=== PATIENT | female | born 1955 | race Caucasian/White ===

== ENCOUNTER → 2016-09-15 | Outpatient (CLI) | payer MEDICAID ==
--- NOTE | 2016-09-15 11:28 | CT ---
CT Right Hip Indication: Fall one week ago. Pain. Popping. Evaluate right hip prosthesis. Technique: 0.625 mm thick helically acquired slices were obtained through the entire pelvis. The data was reconstructed in the sagittal and coronal planes in bone algorithm. Dose reduction techniques we re utilized. Comparison: Right hip series, May 28, 2016 and November 13, 2014. Findings: No acute fracture. Bilateral total hip arthroplasties are well seated and anatomically ali gned. Specifically, no evidence of loosening or fracture of the right total hip arthroplasty. The mary tabular component and screw securing the right acetabular component are both well seated. Minimal jayashree ency surrounding the apex of the left acetabular screw is unchanged since May 2016 and [facility] e November 2014. The left femoral component is well seated with minimal adjacent heterotopic calcificati on. No free fluid or hematoma. The imaged portion of the urinary bladder, uterus and adnexa are within no rmal limits. Moderate to severe degenerative disk disease is present at L4-L5 and L5-S1 contributing to at least moderate bilateral neural foraminal stenosis at L5-S1. No acute sacral fracture. Impression: 1. No acute pelvic fracture. 2. Well-seated right total hip arthroplasty. 3. Subtle early loosening of the screw securing the left acetabular component. Comment: The case was reviewed with Dr. Nando Watkins. A message was left at Dr. Fuentes' office at 11:10 a.m. on September 15, 2016.
== END ==
LOC: FIMAGING 09:53
PROVIDERS: ATTEND Family Medicine
DX: M25.551 Pain in right hip (principal); R29.4 Clicking hip; Z96.641 Presence of right artificial hip joint

== ENCOUNTER 2016-09-25 20:05 | Emergency (ER) | payer MEDICAID ==
[2016-09-25] MEDS ORDERED: NS 1,000 ML IV ONE (20:19)
--- NOTE | 2016-09-25 20:19 | EDPHY ---
H & P Time Seen by Provider: 09/25/16 20:09 HPI/ROS: Chief complaint. Hip pain HPI. 61-year-old female here by EMS from [facility] with right hip pain. She says she was standing and had sudden pain in her right hip that caused her to fall. She has bilateral hip arthroplasty. She tells me that it has previously been dislocated and has had multiple revisions and she is anticipating another revision. She has chronic pain takes morphine for this. This morning she says she threw up her morning dose of morphine. No other injuries. ROS Constitutional. no fever/chills, no weakness Eyes. no problems with vision ENT. no sore throat, no nasal drainage Cardiovascular. no chest pain Respiratory. no shortness of breath, no cough Abdominal. no abdominal pain, no nausea/vomiting, no diarrhea . no problems urinating MS. Right hip pain Skin. no rash Lymph. no swollen glands Neuro. no headache, no dizziness, no difficulty walking or with speech Past Medical/Surgical History: Chronic pain, hypothyroid, UT, hip arthroplasty Social History: , smoker no alcohol Smoking Status: Current every day smoker Physical Exam: General Appearance: Alert well-developed female mild distress vital signs stable Eyes: Pupils equal and round no pallor or injection. ENT, Mouth: Mucous membranes are moist. Respiratory: There are no retractions, lungs are clear to auscultation. Cardiovascular: Regular rate and rhythm. Gastrointestinal: Abdomen is soft and nontender, no masses, bowel sounds normal. Neurological: Awake and alert, sensory and motor exams grossly normal. Skin: Warm and dry, no rashes. Musculoskeletal: Neck is supple nontender. Extremities tender in the right hip to palpation however the patient has spontaneous good range of motion crosses her legs spontaneously Psychiatric: Patient is oriented X 3, there is no agitation. Constitutional: Initial Vital Signs Temperature (C) 36.7 C 09/25/16 20:05 Heart Rate 73 09/25/16 20:05 Respiratory Rate 18 09/25/16 20:05 Blood Pressure 185/95 H 09/25/16 20:05 O2 Sat (%) 98 09/25/16 20:05 O2 Delivery Mode Room Air Allergies/Adverse Reactions: ibuprofen [Ibuprofen] Allergy (Severe, Verified 09/12/14 19:04) Hives lamotrigine [From Lamictal] Allergy (Severe, Verified 09/12/14 19:04) HALLUCINATIONS methadone [Methadone] Allergy (Severe, Verified 09/12/14 19:04) Anaphylaxis ketorolac tromethamine [From Toradol] Allergy (Verified 09/12/14 19:04) naproxen sodium [From Aleve] Allergy (Verified 09/12/14 19:04) ANTIDEPRESSANTS Allergy (Severe, Uncoded 09/12/14 19:04) MENTAL CHANGES, LOSS MOTOR SKILLS antipsychotics Allergy (Uncoded 09/12/14 19:04) Home Medications: Medication Instructions Recorded Fluticasone/Salmeter 250/50Mcg 2 puffs IH BID 04/15/14 [Advair 250/50 (*)] Levothyroxine [Synthroid 50 mcg 50 mcg PO DAILY06 04/15/14 (*)] Mesalamine [Asacol 400 mg] 1,200 mg PO DAILY 04/15/14 Ondansetron Odt [Zofran Odt 4 mg 8 mg PO BID PRN 04/15/14 (*)] clonAZEPAM [Klonopin] 2 mg PO TID 04/15/14 morphINE SR [MS Contin/Oramorph 60 60 mg PO Q8 04/15/14 mg (*)] Atorvastatin Calcium [Lipitor 10 10 mg PO DAILY #0 tab 04/18/14 mg (*)] Albuterol Sulfate [Albuterol 2 puffs IH BID PRN 04/29/14 Inhaler Hfa] Lisinopril [Zestril 20 mg (*)] 20 mg PO DAILY 04/29/14 Medical Decision Making - Diagnostics Imaging: X-ray right hip and pelvis show no evidence for fracture or dislocation. Her prostheses appear to be in good anatomic position Procedures: IV normal saline. Morphine for pain ED Course/Re-evaluation: Re-evaluation at 8:30 p.m. patient is stable. She and I discussed treatment plan including criteria for return importance of follow-up and further evaluation. She expresses understanding and agreement Differential Diagnosis: I considered fracture, dislocation, sprain Departure - Departure Disposition: Home, Routine, Self-Care Clinical Impression: Pain of right hip Condition: Good Instructions: Hip Pain (ED) Additional Instructions: Ice to sore area of hip next 24 hours. Continue regular medications. Zofran if needed for nausea signal throw up your morphine. Call your orthopedist on Tuesday to arrange follow-up evaluation
[2016-09-25] MEDS ORDERED: ONDANSETRON 4MG PREPACK#2 BTL TAKEHOME ONE (20:49)
[2016-09-25 20:55] VITALS: RESP 16; O2SAT 96
--- NOTE | 2016-09-25 21:06 | DX ---
AP Supine Pelvis and Frog Lateral View of the Right Hip, Three Views Total September 25, 2016 at 8:32 p.m. Clinical History: 61-year-old female who fell and complains of right hip pain. Comparison Studies: CT scan of the right hip dated September 15, 2016, and a pelvic radiograph dated May. Findings: The patient has undergone prior bilateral total hip arthroplasties, which are anatomically aligned and stable in position. There is no new periprosthetic lucency. The appearance of each cortic al retention screw in the respective iliac bones is unchanged from May. There is some osseous h ypertrophy and well-corticated bone along the greater trochanteric on each side. There is also some o sseous hypertrophy just above the left lateral acetabulum. The femoral intramedullary components are well-positioned. The ischiopubic rami are intact. There is no symphysis pubis or SI joint diastasis. There are some degenerative features of the lower lumbar spine. Impression: Status post bilateral hip arthroplasties, with no acute osseous abnormality identified.
[2016-09-25 21:27] VITALS: BP 168/79; PULSE 78; TEMP 97.2
== END 2016-09-25 22:00 | disposition home or self-care (01) ==
LOC: EDUNIT#
DX: S79.911A Unspecified injury of right hip, initial encounter (principal); I25.2 Old myocardial infarction; F17.200 Nicotine dependence, unspecified, uncomplicated; W19.XXXA Unspecified fall, initial encounter
CPT/HCPCS: 96374

== ENCOUNTER 2016-11-19 15:21 | Emergency (ER) | payer MEDICAID ==
[2016-11-19] MEDS ORDERED: ONDANSETRON 4 MG/2 ML VIAL IVP ONE (15:31)
[2016-11-19] MEDS ORDERED: NS 1,000 ML IV ONE (15:31)
[2016-11-19 15:32] VITALS: RESP 18; TEMP 97.7
--- NOTE | 2016-11-19 15:32 | EDPHY ---
General Narrative: CHIEF COMPLAINT: Nausea, vomiting, cough, shortness of breath, diarrhea HISTORY OF PRESENT ILLNESS: patient says she has had nausea, vomiting and diarrhea for the past few days. Due to this, she has increased her intake of her prescribed morphine for chronic pain and she reports being able to keep them down. She says that the nausea vomiting is mild to moderate and persistent. Keeping liquids down. Difficulty with fluids. No bloody stools or emesis. No chest pain but she does have some cough and shortness of breath. No abdominal pain or urinary complaints. She took 1 of her 's 1 mg clonidine earlier today due to the anxiety she felt or running out of her pain medication. This caused her to be dizzy and this resolved within an hour. She had no syncope. She has no neck pain. No other associated complaints or modifying factors. REVIEW OF SYSTEMS: Ten systems reviewed and are negative unless otherwise noted in the HPI PERTINENT MEDICAL HISTORY: Chronic back pain, chronic hip pain EXAMINATION General Appearance: Alert, no distress Head: normocephalic, atraumatic Eyes: Pupils equal and round, no conjunctival pallor or injection. EOMs intact. ENT, Mouth: Mucous membranes moist. Uvula midline. No erythema or edema. Neck: Normal inspection, supple, non-tender Respiratory: Mild rhonchi. No wheezing. No consolidation. No crackles. No diminishment. Cardiovascular: Regular rate and rhythm . No murmur. Pulses intact distally. Gastrointestinal: Abdomen is soft and nontender . No CVA tenderness. No tympany. No rigidity. Neurological: A&O, nonfocal, normal gait Skin: Warm and dry . Multiple areas of excoriation. There also discolorations about the arm consistent with previous infection per patient. No acute lesions. Extremities: Nontender, no pedal edema Psychiatric: Mood and affect normal DIFFERENTIAL DIAGNOSES: Including but not limited to Narcotic dependency, opiate dependency, nausea vomiting, viral illness, influenza, dehydration, COPD, hypertension MDM: 3:25 p.m. nausea, vomiting, diarrhea, body aches, chills. These preceded her running out of her pain medications. She was vomiting to the point she kept retaking her medication because she could not keep down. She has chronic pain of the low back and right hip. Vital signs are stable with mild hypertension. She has missed some of her lisinopril. Dizziness was reviewed later that the clonidine that she took her 's that has resolved. 3:38 p.m. upon review of the patient's prescription monitoring program, there is discrepancy and what she tells me about her dosing prescriptions and was actually prescribed. Patient had 56 sustained release morphine 60 mg dispersed on the , and 42 immediate release 30 mg. I am not comfortable with providing any more narcotics to her today given this discrepancy. Will obtain laboratory studies to verify her hydration status, and we will provide IV fluid resuscitation. 4:15 p.m. notified by the patient's PCP office that she will not be able to obtain any prescriptions until Tuesday for her pain medication 4:30 p.m. laboratory studies are within acceptable limits. No pneumonia. Vital signs stable. She does have hypertension but she has not been taking medication for this. She is instructed to resume it. She will be discharged home with instructions to resume that, take her Zofran and follow up with her primary care physician on Tuesday for further pain medication SUPERVISION: This patient was independently evaluated without the aide of supervising physician. Case discussed with Dr. Joy - History Smoking Status: Current every day smoker - Objective Allergies/Adverse Reactions: ibuprofen [Ibuprofen] Allergy (Severe, Verified 09/12/14 19:04) Hives lamotrigine [From Lamictal] Allergy (Severe, Verified 09/12/14 19:04) HALLUCINATIONS methadone [Methadone] Allergy (Severe, Verified 09/12/14 19:04) Anaphylaxis ketorolac tromethamine [From Toradol] Allergy (Verified 09/12/14 19:04) naproxen sodium [From Aleve] Allergy (Verified 09/12/14 19:04) ANTIDEPRESSANTS Allergy (Severe, Uncoded 09/12/14 19:04) MENTAL CHANGES, LOSS MOTOR SKILLS antipsychotics Allergy (Uncoded 09/12/14 19:04) Home Medications: Medication Instructions Recorded Fluticasone/Salmeter 250/50Mcg 2 puffs IH BID 04/15/14 [Advair 250/50 (*)] Levothyroxine [Synthroid 50 mcg 50 mcg PO DAILY06 04/15/14 (*)] Mesalamine [Asacol 400 mg] 1,200 mg PO DAILY 04/15/14 Ondansetron Odt [Zofran Odt 4 mg 8 mg PO BID PRN 04/15/14 (*)] clonAZEPAM [Klonopin] 2 mg PO TID 04/15/14 morphINE SR [MS Contin/Oramorph 60 60 mg PO Q8 04/15/14 mg (*)] Atorvastatin Calcium [Lipitor 10 10 mg PO DAILY #0 tab 04/18/14 mg (*)] Albuterol Sulfate [Albuterol 2 puffs IH BID PRN 04/29/14 Inhaler Hfa] Lisinopril [Zestril 20 mg (*)] 20 mg PO DAILY 04/29/14 Ondansetron Odt [Zofran Odt 4 mg 4 mg PO Q6 PRN #12 tab 11/19/16 (*)] Departure - Departure Disposition: Home, Routine, Self-Care Clinical Impression: Nausea & vomiting Qualifiers: Vomiting type: unspecified Vomiting Intractability: non-intractable Qualified Code(s): R11.2 - Nausea with vomiting, unspecified Opioid dependence Qualifiers: Substance use status: uncomplicated Qualified Code(s): F11.20 - Opioid dependence, uncomplicated Condition: Good Instructions: Acute Nausea and Vomiting (ED), Opioid Dependence (ED), Chronic Pain (ED) Additional Instructions: follow-up with primary care physician today to obtain further pain medication prescriptions. Return to the ER for any chest pain or worsening symptoms Referrals: Patient,NotPresent [Primary Care Provider] - As per Instructions Hayden Fuentes MD [Medical Doctor] - As per Instructions Prescriptions: Ondansetron Odt [Zofran Odt 4 mg (*)] 4 mg PO Q6 PRN #12 tab PRN Reason: Nausea/Vomiting, Use 1st
[2016-11-19 15:38] LABS: % IMMATURE GRANULYOCYTES 0.2 % (0.0-1.1); ABSOLUTE IMMATURE GRANULOCYTES 0.01 10^3/uL (0.00-0.10); ADD DIFF? NO; ADD MORPH? NO; ADD SCAN? NO; ATYPICAL LYMPHOCYTE FLAG 0 (0-99); FRAGMENT RBC FLAG 0 (0-99); HEMATOCRIT 47.9 % (38.0-47.0); HEMOGLOBIN 16.4 g/dL (12.6-16.3); LEFT SHIFT FLG 0 (0-99); LIPEMIA HEMOLYSIS FLAG 90 (0-99); MEAN CELL HEMOGLOBIN 32.7 pg (27.9-34.1); MEAN CELL HEMOGLOBIN CONCENTR. 34.2 g/dL (32.4-36.7); MEAN CELL VOLUME 95.4 fL (81.5-99.8); MEAN PLATELET VOLUME 9.8 fL (8.7-11.7); PLATELET CLUMPS FLAG 10 (0-99); PLATELET COUNT 266 10^3/uL (150-400); RED BLOOD CELL COUNT 5.02 10^6/uL (4.18-5.33); RED CELL DISTRIBUTION WIDTH 12.5 % (11.5-15.2)
[2016-11-19 15:54] LABS: ALANINE AMINOTRANSFERASE 21 IU/L (9-52); ALBUMIN 5.2 g/dL (3.5-5.0); ALKALINE PHOSPHATASE 83 IU/L (38-126); ANION GAP 17 mEq/L (8-16); ASPARTATE AMINOTRANSFERASE 21 IU/L (14-46); BILIRUBIN,TOTAL 0.7 mg/dL (0.1-1.4); BILIRUBIN-CONJUGATED 0.3 mg/dL (0.0-0.5); BILIRUBIN-UNCONJUGATED 0.4 mg/dL (0.0-1.1); CALCIUM 10.4 mg/dL (8.5-10.4); CARBON DIOXIDE 23 mEq/l (22-31); CHLORIDE 107 mEq/L (97-110); CREATININE 0.7 mg/dL (0.6-1.0); GLOMERULAR FILTRATION RATE > 60; GLUCOSE 124 mg/dL (70-100); POTASSIUM 4.3 mEq/L (3.5-5.2); SODIUM 147 mEq/L (134-144); TOTAL PROTEIN 8.5 g/dL (6.3-8.2)
[2016-11-19 16:50] VITALS: BP 188/90; PULSE 78; O2SAT 96
== END 2016-11-19 16:49 | disposition home or self-care (01) ==
LOC: EDUNIT#
DX: R11.2 Nausea with vomiting, unspecified (principal); F11.20 Opioid dependence, uncomplicated; F17.200 Nicotine dependence, unspecified, uncomplicated
CPT/HCPCS: 96374; J2405

== ENCOUNTER → 2016-12-06 | Outpatient (CLI) | payer MEDICAID | LOC: FIMAGING 10:52 | PROVIDERS: ATTEND Family Medicine | DX: M41.84 Other forms of scoliosis, thoracic region (principal); M25.551 Pain in right hip; Z95.0 Presence of cardiac pacemaker; M54.2 Cervicalgia; Z98.1 Arthrodesis status; G89.4 Chronic pain syndrome; M19.90 Unspecified osteoarthritis, unspecified site; M81.0 Age-related osteoporosis without current pathological fracture; E03.9 Hypothyroidism, unspecified; Z51.81 Encounter for therapeutic drug level monitoring | CPT/HCPCS: 84481-90 ==

== ENCOUNTER → 2017-03-11 | Outpatient (CLI) | payer MEDICAID ==
[~2017-03-11] MED LIST: IOPAMIDOL (ISOVUE-M 200) 20 ML VIAL ONE; LIDOCAINE 1% 300 MG/30 ML SDV ONE
== END ==
LOC: FIMAGING 08:14
PROVIDERS: ATTEND Neurological Surgery
PROC: 3E0R3KZ Introduction of Other Diagnostic Substance into Spinal Canal, Percutaneous Approach (ICD-10-PCS; principal; 2017-03-11)
DX: M51.36 Other intervertebral disc degeneration, lumbar region (principal); M47.896 Other spondylosis, lumbar region; M12.88 Other specific arthropathies, not elsewhere classified, other specified site; M48.06 Spinal stenosis, lumbar region; M99.73 Connective tissue and disc stenosis of intervertebral foramina of lumbar region
CPT/HCPCS: Q9966

== ENCOUNTER 2018-03-18 16:56 | Emergency (ER) | payer MEDICAID ==
--- NOTE | 2018-03-18 17:02 | EDPHY ---
H & P Time Seen by Provider: 03/18/18 17:01 HPI/ROS: CHIEF COMPLAINT: Chest pain HISTORY OF PRESENT ILLNESS: Patient is had multiple episodes of intermittent fluttering of her heart over the last week and a half and she had elevated temperature couple of days ago. Today she is moving and she did more lifting and walking up and down and packing boxes which is unusual for today. 3:30 p.m. Today she developed pain just left of the center of her chest and felt like it was going to"blow out of my chest"and was severe. Was worse with movement but not with deep breathing. No coughing and not short of breath. Did not radiate. Not exertional. Not associated with nausea or jaw or back or neck symptoms. Symptoms are much better now. REVIEW OF SYSTEMS: Eye: no change in vision ENT: no sore throat Cardiac: HPI Pulmonary: no cough or SOB Abdomen: no vomiting, diarrhea, abdominal pain Musculoskeletal: Multiple areas of chronic muscular back and neck pain after previous surgeries Skin: no rash Neuro: no headache Constitutional: no fever : no urinary symptoms A comprehensive 10 point review of systems is otherwise negative aside from elements mentioned in the history of present illness. PAST MEDICAL HISTORY: Discharge summary dated 04/30/2014 personally reviewed includes negative catheterization during that hospitalization with maximum 60% diagonal lesion angiogram. H&P dated 04/17/2014 personally reviewed includes ulcerative colitis, pacemaker for sinus arrest, cholecystectomy. Previous history of DVT x2. Social history: Smoker General Appearance: Alert and conversant, cooperative. Eyes: No scleral icterus. ENT, Mouth: Normal mucous membranes. Respiratory: Normal respiratory effort, breath sounds equal, lungs are clear to auscultation. Speaks in full sentences, not short of breath. I can't reproduce her pain by pushing down her chest wall just lateral to her sternum at the level of her breasts. Cardiovascular: Regular rate and rhythm. No murmur. Gastrointestinal: Abdomen is soft and non tender. Neurological: Alert, face symmetric, normal motor and sensory in extremities. Skin: Warm and dry, no rashes. Musculoskeletal: No peripheral edema. No calf tenderness. Psychiatric: Not agitated. Emergency Department course/MDM: Much more likely to be muscular than pulmonary embolism or ACS. The patient thinks it is probably from moving boxes. Plan for EKG, chest x-ray, D-dimer. 1740: Chest x-ray personally interpreted shows pacemaker and left shoulder hardware otherwise negative. 1932: CT chest angio negative per Dr. Leno Deluna, more likely musculoskeletal chest pain. Results discussed with patient at this time. Smoking Status: Current every day smoker Constitutional: Initial Vital Signs Temperature (C) 36.9 C 03/18/18 17:04 Heart Rate 78 03/18/18 17:04 Respiratory Rate 14 03/18/18 17:04 Blood Pressure 140/76 H 03/18/18 17:04 O2 Sat (%) 97 03/18/18 17:04 O2 Delivery Mode Room Air Allergies/Adverse Reactions: ibuprofen [Ibuprofen] Allergy (Severe, Verified 02/16/17 17:25) Hives ketorolac tromethamine [From Toradol] Allergy (Severe, Verified 02/16/17 17:25) lamotrigine [From Lamictal] Allergy (Severe, Verified 02/16/17 17:25) HALLUCINATIONS methadone [Methadone] Allergy (Severe, Verified 02/16/17 17:25) Anaphylaxis naproxen sodium [From Aleve] Allergy (Verified 02/16/17 17:25) ANTIDEPRESSANTS Allergy (Severe, Uncoded 02/16/17 17:25) MENTAL CHANGES, LOSS MOTOR SKILLS antipsychotics Allergy (Uncoded 02/16/17 17:25) Home Medications: Medication Instructions Recorded Fluticasone/Salmeter 250/50Mcg 2 puffs IH BID 04/15/14 [Advair 250/50 (*)] Ondansetron Odt [Zofran Odt 4 mg 8 mg PO BID PRN 04/15/14 (*)] clonazePAM [Klonopin] 2 mg PO TID 04/15/14 morphINE SR [MS Contin/Oramorph 60 60 mg PO Q8 04/15/14 mg (*)] Aspirin 81mg (*) 81 mg PO DAILY 02/16/17 morphINE IR 30 mg (*) 30 mg PO QID PRN 02/16/17 Medical Decision Making - Diagnostics EKG Interpretation: 12-lead EKG interpreted by me; official reading is in trace master. My interpretation is sinus rhythm rate 78 no ischemic changes. Imaging Results: Imaging Impressions Chest X-Ray 03/18/18 17:09 Impression: 1. Query airways disease. 2. See above report for additional findings. Chest/Thorax CTA 03/18/18 18:20 Impression: 1. No evidence of pulmonary embolic disease. 2. See above report for additional findings. Results called and discussed with GUMARO SCHULTE M.D. on 03/18/2018 at 19:33. Imaging: Discussed imaging studies w/ call center analyst Radiologist Differential Diagnosis: Differential diagnosis considered for chest pain including but not limited to myocardial ischemia, aortic dissection, pericarditis, pulmonary embolus, chest wall pain, pleural inflammation and pulmonary infectious causes. - Data Points Laboratory Results: Laboratory Results 03/18/18 17:30 03/18/18 17:30 03/18/18 03/18/18 03/18/18 17:30 17:30 17:30 WBC 6.17 10^3/uL 10^3/uL (3.80-9.50) RBC 4.29 10^6/uL 10^6/uL (4.18-5.33) Hgb 12.9 g/dL g/dL (12.6-16.3) Hct 39.1 % % (38.0-47.0) MCV 91.1 fL fL (81.5-99.8) MCH 30.1 pg pg (27.9-34.1) MCHC 33.0 g/dL g/dL (32.4-36.7) RDW 13.9 % % (11.5-15.2) Plt Count 241 10^3/uL 10^3/uL (150-400) MPV 8.6 fL L fL (8.7-11.7) Neut % (Auto) 50.4 % % (39.3-74.2) Lymph % (Auto) 42.3 % % (15.0-45.0) Sequoyah % (Auto) 4.9 % % (4.5-13.0) Eos % (Auto) 1.6 % % (0.6-7.6) Baso % (Auto) 0.3 % % (0.3-1.7) Nucleat RBC Rel Count 0.0 % % (0.0-0.2) Absolute Neuts (auto) 3.11 10^3/uL 10^3/uL (1.70-6.50) Absolute Lymphs (auto) 2.61 10^3/uL 10^3/uL (1.00-3.00) Absolute Monos (auto) 0.30 10^3/uL 10^3/uL (0.30-0.80) Absolute Eos (auto) 0.10 10^3/uL 10^3/uL (0.03-0.40) Absolute Basos (auto) 0.02 10^3/uL 10^3/uL (0.02-0.10) Absolute Nucleated RBC 0.00 10^3/uL 10^3/uL (0-0.01) Immature Gran % 0.5 % % (0.0-1.1) Immature Gran # 0.03 10^3/uL 10^3/uL (0.00-0.10) D-Dimer 1.66 ug/mLFEU H ug/mLFEU (0.00-0.50) Sodium 139 mEq/L mEq/L (135-145) Potassium 3.9 mEq/L mEq/L (3.3-5.0) Chloride 106 mEq/L mEq/L (97-110) Carbon Dioxide 26 mEq/l mEq/l (22-31) Anion Gap 7 mEq/L L mEq/L (8-16) BUN 12 mg/dL mg/dL (7-23) Creatinine 0.8 mg/dL mg/dL (0.6-1.0) Estimated GFR > 60 Glucose 73 mg/dL mg/dL (70-100) Calcium 9.5 mg/dL mg/dL (8.5-10.4) POC Troponin I 03/18/18 17:06 WBC RBC Hgb Hct MCV MCH MCHC RDW Plt Count MPV Neut % (Auto) Lymph % (Auto) Sequoyah % (Auto) Eos % (Auto) Baso % (Auto) Nucleat RBC Rel Count Absolute Neuts (auto) Absolute Lymphs (auto) Absolute Monos (auto) Absolute Eos (auto) Absolute Basos (auto) Absolute Nucleated RBC Immature Gran % Immature Gran # D-Dimer Sodium Potassium Chloride Carbon Dioxide Anion Gap BUN Creatinine Estimated GFR Glucose Calcium POC Troponin I 0.00 ng/mL ng/mL (0.00-0.08) Point of Care Test Results: Chemistry 03/18/18 17:06 POC Troponin I 0.00 ng/mL ng/mL (0.00-0.08) Departure - Departure Disposition: Home, Routine, Self-Care Clinical Impression: Chest pain Qualifiers: Chest pain type: unspecified Qualified Code(s): R07.9 - Chest pain, unspecified Condition: Good Instructions: Chest Pain (ED) Referrals: Patient,NotPresent [Unknown] - As per Instructions (Dr. Fuentes your PCP)
--- NOTE | 2018-03-18 17:05 | CPEKG ---
Heart Rate: 78 RR Interval: 769 P-R Interval: 156 QRSD Interval: 92 QT Interval: 404 QTC Interval: 461 P Ripley: 74 QRS Ripley: 62 T Wave Ripley: 49 EKG Severity - NORMAL ECG - EKG Impression: SINUS RHYTHM Electronically Signed By: Sj Donaldson 18-Mar-2018 18:52:41
[2018-03-18 17:39] LABS: PLATELET COUNT 241 10^3/uL (150-400)
[2018-03-18] MEDS ORDERED: IOPAMIDOL (ISOVUE 370) 100 ML BTL IV ONE (18:28)
[2018-03-18 19:51] VITALS: BP 149/82
== END 2018-03-18 19:51 | disposition home or self-care (01) ==
LOC: EDUNIT# → EDBD
DX: R07.9 Chest pain, unspecified (principal); F17.200 Nicotine dependence, unspecified, uncomplicated; Z79.82 Long term (current) use of aspirin; Z95.0 Presence of cardiac pacemaker
CPT/HCPCS: 84484-PO; Q9967

== ENCOUNTER 2018-07-09 17:18 | Observation (INO) | payer MEDICAID ==
--- NOTE | 2018-07-09 17:11 | EDPHY ---
HPI/HX/ROS/PE/MDM Narrative: CHIEF COMPLAINT: Chest pain HPI: The patient is a 62 y/o female with a history of a pacemaker, DVT, and chronic pain arriving via EMS complaining of chest pain for one week. This patient has been seen in this emergency department numerous times for chronic pain and chest pain. She states that several years ago she had "five heart attacks in one day but had no stents placed". She does have a pacemaker, but is unsure when this was last interrogated. Around one week ago she developed the chest pain. This pain felt like "someone was sitting" on her chest. On the second night it felt like her chest might "pop". Due to this pain she has taken 2-3 nitros every night for the last week, which improved her pain. Last night she also had a "panic attack" in addition to her chest pain and continued to take the nitro. Due to this pain she made an appointment with a "female lay ups assembler " on , 4 days from now. Today the pain exacerbated, so she called EMS. While en route she started feeling dizzy, so she was placed on supplemental oxygen; she was also given 1 nitro for the chest pain. Currently she is having central chest pain that radiates to the left side and her back. This pain right now is not similar to her prior heart attack as she did not have much pain with the prior heart attacks. No headache, shortness of breath, abdominal pain, urinary or bowel complaints, numbness, paresthesias, fevers. REVIEW OF SYSTEMS: Aside from elements discussed in the HPI, a comprehensive 10-point review of systems was reviewed and is negative. PMH: Negative catheterization on 04/30, ulcerative colitis, pacemaker for sinus arrest, cholecystectomy, DVT x2. SOCIAL HISTORY: Lives in [place], , not employed PHYSICAL EXAM: General: Patient is alert, in no acute distress. ENT: Eyes are normal to inspection. ENT inspection normal. Neck: Normal inspection. Full range of motion. Respiratory: No respiratory distress. Breath sounds normal bilaterally. Cardiovascular: Regular rate and rhythm. Strong peripheral pulses. Normal cap refill. Abdomen: The abdomen is nontender to palpation. There are no peritoneal signs. There are normal bowel sounds. Back: Normal to inspection. No tenderness to palpation. Skin: Normal color. No rash. Warm and dry. Extremities: Normal appearance. Full range of motion. Neuro: Oriented x3. Normal motor function. Normal sensory function. ED Course: 1724: EKG was ordered and interpreted by myself. Please see [employer] system for official reading. 1809: Reassessed patient and discussed negative imaging and laboratory findings. I have offered her admission for continued evaluation and observation , which she is comfortable with. 1814: I consulted with the hospitalist service, Dr. Savage accepts admission of this patient. - Data Points Imaging Results: Imaging Impressions Chest X-Ray 07/09/18 17:22 Impression: Stable negative chest.. Imaging: I viewed and interpreted images myself Laboratory Results: Laboratory Results 07/09/18 17:33 07/09/18 17:33 07/09/18 07/09/18 07/09/18 17:45 17:33 17:33 WBC 5.19 10^3/uL 10^3/uL (3.80-9.50) RBC 4.46 10^6/uL 10^6/uL (4.18-5.33) Hgb 13.5 g/dL g/dL (12.6-16.3) Hct 39.6 % % (38.0-47.0) MCV 88.8 fL fL (81.5-99.8) MCH 30.3 pg pg (27.9-34.1) MCHC 34.1 g/dL g/dL (32.4-36.7) RDW 13.2 % % (11.5-15.2) Plt Count 199 10^3/uL 10^3/uL (150-400) MPV 9.1 fL fL (8.7-11.7) Neut % (Auto) 54.0 % % (39.3-74.2) Lymph % (Auto) 38.5 % % (15.0-45.0) [place] % (Auto) 5.0 % % (4.5-13.0) Eos % (Auto) 1.3 % % (0.6-7.6) Baso % (Auto) 0.8 % % (0.3-1.7) Nucleat RBC Rel Count 0.0 % % (0.0-0.2) Absolute Neuts (auto) 2.80 10^3/uL 10^3/uL (1.70-6.50) Absolute Lymphs (auto) 2.00 10^3/uL 10^3/uL (1.00-3.00) Absolute Monos (auto) 0.26 10^3/uL L 10^3/uL (0.30-0.80) Absolute Eos (auto) 0.07 10^3/uL 10^3/uL (0.03-0.40) Absolute Basos (auto) 0.04 10^3/uL 10^3/uL (0.02-0.10) Absolute Nucleated RBC 0.00 10^3/uL 10^3/uL (0-0.01) Immature Gran % 0.4 % % (0.0-1.1) Immature Gran # 0.02 10^3/uL 10^3/uL (0.00-0.10) Sodium 144 mEq/L mEq/L (135-145) Potassium 3.9 mEq/L mEq/L (3.3-5.0) Chloride 105 mEq/L mEq/L (97-110) Carbon Dioxide 25 mEq/l mEq/l (22-31) Anion Gap 14 mEq/L mEq/L (6-14) BUN 3 mg/dL L mg/dL (7-23) Creatinine 0.8 mg/dL mg/dL (0.6-1.0) Estimated GFR > 60 Glucose 85 mg/dL mg/dL (70-100) Calcium 9.3 mg/dL mg/dL (8.5-10.4) POC Troponin I 0.00 ng/mL ng/mL (0.00-0.08) Point of Care Test Results: Chemistry 07/09/18 17:45 POC Troponin I 0.00 ng/mL ng/mL (0.00-0.08) General Time Seen by Provider: 07/09/18 17:18 Initial Vital Signs: Initial Vital Signs Temperature (C) 37.0 C 07/09/18 17:27 Heart Rate 88 07/09/18 17:27 Respiratory Rate 18 07/09/18 17:27 Blood Pressure 157/93 H 07/09/18 17:27 O2 Sat (%) 99 07/09/18 17:27 O2 Delivery Mode Nasal Cannula O2 (L/minute) 2 Allergies/Adverse Reactions: ibuprofen [Ibuprofen] Allergy (Severe, Verified 07/09/18 17:31) Hives ketorolac tromethamine [From Toradol] Allergy (Severe, Verified 07/09/18 17:31) lamotrigine [From Lamictal] Allergy (Severe, Verified 07/09/18 17:31) HALLUCINATIONS methadone [Methadone] Allergy (Severe, Verified 07/09/18 17:31) Anaphylaxis naproxen sodium [From Aleve] Allergy (Verified 07/09/18 17:31) ANTIDEPRESSANTS Allergy (Severe, Uncoded 07/09/18 17:31) MENTAL CHANGES, LOSS [employer] SKILLS antipsychotics Allergy (Uncoded 07/09/18 17:31) Home Medications: Medication Instructions Recorded Ondansetron Odt [Zofran Odt 4 mg 4 mg PO QID PRN 04/15/14 (*)] Albuterol [Proventil Inhaler HFA 1 - 2 puffs IH Q4H PRN 07/09/18 (*)] Aspirin EC [Aspirin EC 325 mg (*)] 325 mg PO DAILY 07/09/18 Lisinopril [Zestril 20 mg (*)] 20 mg PO DAILY 07/09/18 Nitroglycerin [Nitrostat 0.4 mg 0.4 mg SL Q5M PRN 07/09/18 (*)] clonazePAM [Clonazepam] 2 mg PO TID PRN 07/09/18 morphINE IR [morphINE IR 30 mg (*)] 30 mg PO QID 07/09/18 morphINE SR [MS Contin/Oramorph SR 30 mg PO TID 07/09/18 30 mg (*)] Departure - Departure Disposition: [facility] Inpatient Acute Clinical Impression: Chest pain Qualifiers: Chest pain type: other chest pain Qualified Code(s): R07.89 - Other chest pain Condition: Fair Report Scribed for: Nirav Ocampo Report Scribed by: Lynn Perry Date of Report: 07/09/18 Time of Report: 17:11 Physician Review and Approval Statement: Portions of this note were transcribed by an ED scribe. I personally performed the history, physical exam, and medical decision making; and confirm the accuracy of the information in the transcribed note.
[2018-07-09 17:42] LABS: PLATELET COUNT 199 10^3/uL (150-400)
--- NOTE | 2018-07-09 18:36 | PDGENHP ---
History and Physical - Chief Complaint chest pain - History of Present Illness 62 yo female with h/o chronic back and MSK pain on chronic opiates presents to ED c/o chest pain, which started one week ago. Her symptoms occur at rest and are not necessarily exacerbated by activity. She describes "something sitting on her chest". This persisted for days. Today, she endorses associated diaphoresis and nausea. No SOB. She has taken several doses of ntg without much relief. Cardiac risk factors include hypertension. Upon my arrival, she appears comfortable and is laughing and talking with her family. She reported a h/o ND to the ED physician, though it sounds like she is referring to sinus arrest that occurred, for which she subsequently received a pacemaker. She had a clean cath in 2013. In the ED, an initial troponin is negative. Her EKG shows minimal ST depression in the lateral leads. She complains of ongoing mild CP. She is admitted for further evaluation. History Information - Allergies/Home Medication List Allergies/Adverse Reactions: ibuprofen [Ibuprofen] Allergy (Severe, Verified 07/09/18 17:31) Hives ketorolac tromethamine [From Toradol] Allergy (Severe, Verified 07/09/18 17:31) lamotrigine [From Lamictal] Allergy (Severe, Verified 07/09/18 17:31) HALLUCINATIONS methadone [Methadone] Allergy (Severe, Verified 07/09/18 17:31) Anaphylaxis naproxen sodium [From Aleve] Allergy (Verified 07/09/18 17:31) ANTIDEPRESSANTS Allergy (Severe, Uncoded 07/09/18 17:31) MENTAL CHANGES, LOSS [employer] SKILLS antipsychotics Allergy (Uncoded 07/09/18 17:31) Home Medications: Ondansetron Odt [Zofran Odt 4 mg (*)] 4 mg PO QID PRN 04/15/14 [Last Taken 07/09 09:00] Albuterol [Proventil Inhaler HFA (*)] 1 - 2 puffs IH Q4H PRN 07/09/18 [Last Taken 07/06/18] Aspirin EC [Aspirin EC 325 mg (*)] 325 mg PO DAILY 07/09/18 [Last Taken 16:00] Lisinopril [Zestril 20 mg (*)] 20 mg PO DAILY 07/09/18 [Last Taken 07/09/18 09: 00] Nitroglycerin [Nitrostat 0.4 mg (*)] 0.4 mg SL Q5M PRN 07/09/18 [Last Taken 11:00] clonazePAM [Clonazepam] 2 mg PO TID PRN 07/09/18 [Last Taken 07/09/18 11:00] morphINE IR [morphINE IR 30 mg (*)] 30 mg PO QID 07/09/18 [Last Taken 07/09/18 09:00] morphINE SR [MS Contin/Oramorph SR 30 mg (*)] 30 mg PO TID 07/09/18 [Last Taken 07/09/18 09:00] I have personally reviewed and updated: family history, medical history, social history, surgical history - Past Medical History DVT, hypertension Additional medical history: chronic pain. chronic opioid dependence - Surgical History Reports: cholecystectomy Additional surgical history: Pacemaker for sinus arrest - Family History Positive for: non-pertinent - Social History Smoking Status: Former smoker Alcohol Use: Occasionally Drug Use: None Additional social history: , at bedside. Review of Systems Review of Systems: ROS: 10pt was reviewed & negative except for what was stated in HPI & below Physical Exam Physical Exam: Temp Pulse Resp BP Pulse Ox 37.0 C 88 18 157/93 H 99 07/09/18 17:27 07/09/18 17:27 07/09/18 17:27 07/09/18 17:27 07/09/18 17:27 Constitutional: no apparent distress Eyes: PERRL Ears, Nose, Mouth, Throat: moist mucous membranes Cardiovascular: regular rate and rhythym Respiratory: no respiratory distress, clear to auscultation Gastrointestinal: normoactive bowel sounds, soft, non-tender abdomen Skin: warm Musculoskeletal: full muscle strength Neurologic: AAOx3 Psychiatric: interacting appropriately Lab Data & Imaging Review 07/09/18 17:33 07/09/18 17:33 WBC 5.19 10^3/uL (3.80-9.50) 07/09/18 17:33 RBC 4.46 10^6/uL (4.18-5.33) 07/09/18 17:33 Hgb 13.5 g/dL (12.6-16.3) 07/09/18 17:33 Hct 39.6 % (38.0-47.0) 07/09/18 17:33 MCV 88.8 fL (81.5-99.8) 07/09/18 17:33 MCH 30.3 pg (27.9-34.1) 07/09/18 17: MCHC 34.1 g/dL (32.4-36.7) 07/09/18 17:33 RDW 13.2 % (11.5-15.2) 07/09/18 17:33 Plt Count 199 10^3/uL (150-400) 07/09/18 17:33 MPV 9.1 fL (8.7-11.7) 07/09/18 17:33 Neut % (Auto) 54.0 % (39.3-74.2) 07/09/18 17:33 Lymph % (Auto) 38.5 % (15.0-45.0) 07/09/18 17:33 [place] % (Auto) 5.0 % (4.5-13.0) 07/09/18 17:33 Eos % (Auto) 1.3 % (0.6-7.6) 07/09/18 17:33 Baso % (Auto) 0.8 % (0.3-1.7) 07/09/18 17:33 Nucleat RBC Rel Count 0.0 % (0.0-0.2) 07/09/18 17:33 Absolute Neuts (auto) 2.80 10^3/uL (1.70-6.50) 07/09/18 17:33 Absolute Lymphs (auto) 2.00 10^3/uL (1.00-3.00) 07/09/18 17:33 Absolute Monos (auto) 0.26 10^3/uL (0.30-0.80) L 07/09/18 17:33 Absolute Eos (auto) 0.07 10^3/uL (0.03-0.40) 07/09/18 17:33 Absolute Basos (auto) 0.04 10^3/uL (0.02-0.10) 07/09/18 17:33 Absolute Nucleated RBC 0.00 10^3/uL (0-0.01) 07/09/18 17:33 Immature Gran % 0.4 % (0.0-1.1) 07/09/18 17:33 Immature Gran # 0.02 10^3/uL (0.00-0.10) 07/09/18 17:33 Sodium 144 mEq/L (135-145) 07/09/18 17:33 Potassium 3.9 mEq/L (3.3-5.0) 07/09/18 17:33 Chloride 105 mEq/L (97-110) 07/09/18 17:33 Carbon Dioxide 25 mEq/l (22-31) 07/09/18 17:33 Anion Gap 14 mEq/L (6-14) 07/09/18 17:33 BUN 3 mg/dL (7-23) L 07/09/18 17:33 Creatinine 0.8 mg/dL (0.6-1.0) 07/09/18 17:33 Estimated GFR > 60 07/09/18 17:33 Glucose 85 mg/dL (70-100) 07/09/18 17:33 Calcium 9.3 mg/dL (8.5-10.4) 07/09/18 17:33 POC Troponin I 0.00 ng/mL (0.00-0.08) 07/09/18 17:45 Visualized and Interpreted Chest x-ray results: Yes Chest X-Ray results: no infiltrate Visualized and Interpreted EKG results: Yes EKG Interpretation: Positive for: normal sinsus rhythm EKG additional interpertation: some slight ST depression in lateral leads Assessment & Plan Assessment: Chest pain (Acute) - Pain started a week ago and trop neg on arrival. HEART score 4 based on age, htn, ST depression on EKG (though mild) and story. Will admit for inpt risk stratification. -trend trop -ASA, check lipid status in am -repeat EKG now to assess for evolutionary changes -prn ntg, morphine for pain -mary stress in am if trops remain neg and no dynamic ekg changes (unable to exercise due chronic back pain and hip replacements) -no indication for heparin at this time -will also check d dimer given h/o DVT, if positive obtain CTA to r/o PE Chronic pain (back, hip) with chronic continuous opioid use - cont home meds. Per ED, there has been a h/o drug seeking behavior. Hypertension - cont lisinopril H/O DVT x2 - not currently anticoagulated Full code Dispo - obs
[2018-07-09] MEDS ORDERED: ONDANSETRON DISINTEGRATING 4 MG TAB PO PRN (18:41)
[2018-07-09] MEDS ORDERED: NITROGLYCERIN 0.4 MG BTL SL PRN (18:41)
[2018-07-09] MEDS ORDERED: ONDANSETRON 4 MG/2 ML VIAL IVP PRN (18:41)
[2018-07-09] MEDS ORDERED: ACETAMINOPHEN 325 MG TAB PO PRN (18:41)
[2018-07-09] MEDS ORDERED: ASPIRIN 325 MG TAB PO ONE (18:43)
[2018-07-09] MEDS ORDERED: clonazePAM 1 MG TAB PO PRN (19:43)
[2018-07-09] MEDS ORDERED: ALBUTEROL 60 PUFFS/8 GM MDI IH PRN (19:43)
[2018-07-09] MEDS: morphINE IR 30 MG TAB PO SCH (20:09)
--- NOTE | 2018-07-09 21:06 | CPEKG ---
Test Reason : OPEN Blood Pressure : / mmHG Vent. Rate : 082 BPM Atrial Rate : 082 BPM P-R Int : 140 ms QRS Dur : 089 ms QT Int : 403 ms P-R-T Axes : 066 049 063 degrees QTc Int : 471 ms Sinus rhythm Confirmed by Nirav Ocampo ([id number]) on 07/09/2018 9:05:49 PM Referred By: Confirmed By:Nirav Ocampo
[2018-07-09] MEDS: morphINE SR 30 MG TAB PO SCH (23:27)
[2018-07-09] MEDS ORDERED: IOPAMIDOL (ISOVUE 370) 100 ML BTL IV ONE (23:52)
[2018-07-10] MEDS: morphINE IR 30 MG TAB PO SCH ×2 (05:15→12:08)
[2018-07-10] MEDS ORDERED: ASPIRIN EC 325 MG TAB PO SCH (09:00)
[2018-07-10] MEDS ORDERED: ASPIRIN 81 MG CHEWABLE TAB PO SCH (09:00)
[2018-07-10] MEDS ORDERED: LISINOPRIL 20 MG TAB PO SCH (09:00)
[2018-07-10] MEDS: morphINE SR 30 MG TAB PO SCH (10:06)
[2018-07-10] MEDS ORDERED: REGADENOSON 0.4 MG/5 ML SYR IVP ONE (11:12)
--- NOTE | 2018-07-10 11:59 | CPR ---
PROCEDURE: Lexiscan nuclear stress test REASON FOR TEST: Chest pain. Resting EKG shows a sinus rhythm with a rate of 81. She has prolonged QT and late anterior R-wave pr ogression. Resting blood pressure 122/80. Oxygen saturation 96%. She is asymptomatic. STRESS PORTION: Lexiscan was injected rapidly, followed by saline flush. Cardiolite was then inject ed, followed by saline flush. Exercise blood pressure 140/82, heart rate elevation to 87. She remai leela asymptomatic throughout the test. No EKG changes were noted. RECOVERY: Recovery blood pressure 104/80, heart rate 83, oxygen saturation 98%. She remained asympt omatic throughout the test. Her EKG remained unchanged. At this time, she currently is stable for nuclear imaging. /[id number]/MODL
--- NOTE | 2018-07-10 13:34 | GDS ---
DIAGNOSES: 1. Chest pain, noncardiac. 2. Chronic pain with chronic narcotic dependency. 3. Dyslipidemia noted on admission, follow up with primary care doctor. 4. Hypertension. 5. Likely gastroesophageal reflux disease. PROCEDURES DONE: 1. Lexiscan stress test negative for ischemia, normal ejection fraction. 2. CT angiogram of the chest showing no pulmonary embolism, but evidence of a hiatal hernia. HOSPITAL COURSE: The patient is a 62-year-old who comes in with several days of chest pain. This hebert s been constant in nature and not related to exertion or food. She was admitted overnight. She rule d out with serial enzymes and had a Lexiscan stress test the next morning, which was negative for isc hemia. She also had a CT angiogram to rule out pulmonary embolic disease and was noted to have no PE , but did have evidence of a hiatal hernia. She has a remote history of a bleeding ulcer, has been o n omeprazole, however, discontinued that several years ago. On discharge, I will start her on raniti dine 300 at night to see if this helps her pain. She should follow up with her primary care doctor. CONDITION ON DISCHARGE: Good. Vital signs stable. DISCHARGE MEDICATIONS: Please see discharge medication form. FOLLOWUP: Will be with her primary care within 2 weeks. /[id number]/MODL
--- NOTE | 2018-07-10 13:50 | ASDISCHSUM ---
Discharge Information Plan Status:Home with No Needs Medically Cleared to Leave:07/10/2018 Discharge Date:07/10/2018 CM D/C Disposition:Home, Routine, Self-Care ADT D/C Disposition:Home, Routine, Self-Care Projected Discharge Date:07/10/2018 Transportation at D/C:Family Discharge Delay Reason: Follow-Up Date:07/10/2018 Discharge Slot: Final Diagnosis: Placement Information Patient Contact Information Contact Name:DAMIÁN Relationship: Address:[address] Work Phone: City:[facility] Phone: State/Zip Code:[place] [address] Email: Financial Information Financial Class:Medicaid Primary Plan Desc:[employer] Primary Plan Number:[id number] Secondary Plan Desc: Secondary Plan Number: Assessment Information LACE LACE Length of stay for Answers: Less than 1 day current admission Acuity / Level of Answers: No Care: Did the patient have an inpatient admission? Comorbidities - select Answers: Opioid dependence all that apply / Chronic pain Previous myocardial infarction Other Notes: Pacemaker; DVT; HTN # of Emergency department Answers: 1-2 visits in the last 6 months Score: 7 Date Signed: 07/10/2018 01:47 PM Electronically Signed By:Sonia Renteria RN Case Management Discharge Plan Note Case Management Discharge Discharge Order Complete? Answers: Yes Patient to Obtain Answers: Independently Medications Transportation Arranged Answers: Family/Friends Discharge Comments Notes: 07/10/2018 Case Management Note Pt admitted for workup r/t chest pain. Referred pt to [facility]. No further discharge case management needs identified. Discharge plan: home independent with follow up as directed. Date Signed: 07/10/2018 01:49 PM Electronically Signed By:Sonia Renteria RN Intervention Information
[2018-07-10 13:54] VITALS: BP 160/80
--- NOTE | 2018-07-11 14:25 | CPEKG ---
Test Reason : OPEN Blood Pressure : / mmHG Vent. Rate : 076 BPM Atrial Rate : 076 BPM P-R Int : 154 ms QRS Dur : 091 ms QT Int : 395 ms P-R-T Axes : 057 041 052 degrees QTc Int : 445 ms Sinus rhythm Confirmed by Adam Whitt ([id number]) on 07/11/2018 2:24:25 PM Referred By: Confirmed By:Adam Whitt
== END 2018-07-10 15:09 | disposition home or self-care (01) ==
LOC: EDUNIT# → F2W 18:50
PROVIDERS: ADMIT Hospitalist; ATTEND Internal Medicine
DX: R07.89 Other chest pain (principal); G89.29 Other chronic pain; F11.20 Opioid dependence, uncomplicated; E78.5 Hyperlipidemia, unspecified; I10 Essential (primary) hypertension; K21.9 Gastro-esophageal reflux disease without esophagitis; K44.9 Diaphragmatic hernia without obstruction or gangrene; Z23 Encounter for immunization; Z95.0 Presence of cardiac pacemaker; Z86.718 Personal history of other venous thrombosis and embolism; Z96.643 Presence of artificial hip joint, bilateral
CPT/HCPCS: 71046; 71275; 78452; 90471; 93005; 93017; 99285; A9500; G0378; 84484-PO; G0008; J2785; Q9967

== ENCOUNTER → 2019-01-23 | Outpatient (CLI) | payer MEDICAID ==
[~2019-01-23] MED LIST changes: +NA BICARBONATE 50 MEQ/50 ML VIAL ONE
[2019-01-23 09:01] LABS: PROTIME(PATIENT) 12.8 SEC (12.0-15.0)
== END ==
LOC: FIMAGING 07:25
PROVIDERS: ATTEND Physician Assistant
PROC: 3E0R3KZ Introduction of Other Diagnostic Substance into Spinal Canal, Percutaneous Approach (ICD-10-PCS; principal; 2019-01-23)
DX: M51.36 Other intervertebral disc degeneration, lumbar region (principal); M51.37 Other intervertebral disc degeneration, lumbosacral region; M46.97 Unspecified inflammatory spondylopathy, lumbosacral region; M46.96 Unspecified inflammatory spondylopathy, lumbar region; M48.061 Spinal stenosis, lumbar region without neurogenic claudication
CPT/HCPCS: Q9966